=== PATIENT | male | born 1965 | race Caucasian/White ===

== ENCOUNTER 2022-04-14 17:26 | Emergency (ER) | payer OTHER, SELFPAY ==
[2022-04-14] VITALS (7 sets, daily range): BP systolic 124–143; BP diastolic 78–90; PULSE 63–79; RESP 16–18; TEMP 36.4; O2SAT 79–100; BMI 31.2
[2022-04-14 19:02] LABS: Hemoglobin* 14.9 gm/dL (13.5-17.5)
--- NOTE | 2022-04-14 19:12 | ED.GENADULT ---
HPI - General Adult General Chief complaint: Rib Pain <Trenton Claire MD - Last Filed: 04/14/22 20:25> Stated complaint: Short of breath, post surgery <Trenton Claire MD - Last Filed: 04/14/22 20:25> Time Seen by Provider: 04/14/22 18:06 <Trenton Claire MD - Last Filed: 04/14/22 20:25> History of Present Illness HPI narrative: 56-year-old man presenting to the emergency department accompanied by his son with concern of some left-sided chest pain. Little over week ago had a fusion of his left great toe for osteoarthritic related pain. 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 Notes a history of DVTs. No pulmonary emboli that he can recall. Been rather sedentary over the last week plus. Has not experienced shortness of breath. No fever. No cough. Three days ago than was seen for pain in his right forearm thought to be superficial thrombus. He had had an IV placed in the dorsum of that right hand surgery. Scans were done of right and left upper extremities he reports them to have indicated this superficial clot but nothing else. He has had to lay around with his left leg elevated. And then yesterday started to have pain in his left side chest area. Later conversation he feels like it is coming up the chest as well not just in the low left side where he is indicated. Does have some pleuritic nature. Was unable to lay on his left side due to pain. Works as a teacher. Later conversation reveals that he did donate his right kidney to his brother. <Trenton Claire MD - Last Filed: 04/14/22 20:25> Related Data Home medications: Home Medications Medication Instructions Recorded Confirmed aspirin 81 mg chewable tablet 81 mg PO DAILY 04/14/22 04/14/22 Previous Rx's Medication Instructions Recorded apixaban 5 mg (74 tabs) tablets in See Rx Instructions PO .COMPLEX 04/14/22 a dose pack (Eliquis DVT-PE Treat #74 ea 30D Start) <Trenton Claire MD - Last Filed: 04/14/22 20:25> Allergies/adverse reactions: Allergies Allergy/AdvReac Type Severity Reaction Status Date / Time No Known Drug Allergies Allergy Verified 04/14/22 17:39 <Trenton Claire MD - Last Filed: 04/14/22 20:25> Review of Systems Status of ROS: Reports: 10 or more systems reviewed and unremarkable except as noted in History and below <Trenton Claire MD - Last Filed: 04/14/22 20:25> Exam Narrative: Exam Narrative: Pleasantly talkative. Breathing easily. Talking fluidly. Skin is warm and dry. No evidence of trauma other than the IV placement and the dorsum of the right hand. On the dorsal distal right forearm is slight bruising and palpable cording consistent with superficial thrombus. Lungs are clear with equal expansion excursion with breath sounds throughout. There is no crepitus in the supraclavicular area. Palpation over the chest wall does not reveal clearly any reproducible tenderness. He does subjectively reports some tenderness in the left low anterior-lateral chest with deep inspiration. This also extends then to a little bit of the left upper abdomen. Cast in place on the left foot. No surrounding inflammatory changes are appreciated. No lower extremity edema appreciated otherwise. <Trenton Claire MD - Last Filed: 04/14/22 20:25> Const: Vital Signs, click to edit/add: Vital Signs - 24 hr 04/14/22 17:41 04/14/22 18:43 04/14/22 19:23 Temperature 97.5 F L Pulse Rate [Right Pulse Oximeter] 79 72 63 Respiratory Rate 18 16 Blood Pressure [Ri ght Upper Arm] 133/85 143/89 H Pulse Oximetry 79 L 98 99 Oxygen Delivery Me thod Room Air 04/14/22 19:40 Temperature Pulse Rate [Right Pulse Oximeter] 67 Respiratory Rate 16 Blood Pressure [Ri ght Upper Arm] 132/83 Pulse Oximetry 99 Oxygen Delivery Me thod <Trenton Claire MD - Last Filed: 04/14/22 20:25> Vital Signs, click to edit/add: Vital Signs - 24 hr 04/14/22 17:41 04/14/22 18:43 04/14/22 19:23 Temperature 97.5 F L Pulse Rate [Right Pulse Oximeter] 79 72 63 Respiratory Rate 18 16 Blood Pressure [Ri ght Upper Arm] 133/85 143/89 H Pulse Oximetry 79 L 98 99 Oxygen Delivery Me thod Room Air 04/14/22 19:40 Temperature Pulse Rate [Right Pulse Oximeter] 67 Respiratory Rate 16 Blood Pressure [Ri ght Upper Arm] 132/83 Pulse Oximetry 99 Oxygen Delivery Me thod <Marissa Bryant MD - Last Filed: 04/14/22 21:25> Documenting provider has reviewed patient's vital signs: yes <Trenton Claire MD - Last Filed: 04/14/22 20:25> Course Course Hospital Course: Received sign-out for this patient to follow-up on his CT scan. CT does show a subsegmental PE with a probable small area of pulmonary infarct. Discussed findings with the patient. Will go ahead start him on Eliquis. First dose given in the ER tonight since pharmacies are now closed. He will follow up with primary care provider next week. Note patient has no hypoxia, tachycardia or signs of right heart strain. <Trenton Claire MD - Last Filed: 04/14/22 20:25> Vital Signs Vital signs: Initial Vital Signs Temperature 97.5 F L 04/14/22 17:41 Temperature Source Temporal Artery Scan 04/14/22 17:41 Pulse Rate 79 04/14/22 17:41 Respiratory Rate 18 04/14/22 17:41 Blood Pressure 133/85 04/14/22 17:41 Blood Pressure Mean 101 04/14/22 17:41 Blood Pressure Position Sitting 04/14/22 17:41 Pulse Oximetry 79 L 04/14/22 17:41 Oxygen Delivery Method 04/14/22 17:41 Vital Signs Temperature 97.5 F L 04/14/22 17:41 Pulse Rate 79 04/14/22 17:41 Respiratory Rate 18 04/14/22 17:41 Blood Pressure 133/85 04/14/22 17:41 Pulse Oximetry 79 L 04/14/22 17:41 Oxygen Delivery Method 04/14/22 17:41 Temperature 97.5 F L 04/14/22 17:41 Pulse Rate 67 04/14/22 19:40 Respiratory Rate 16 04/14/22 19:40 Blood Pressure 132/83 04/14/22 19:40 Pulse Oximetry 99 04/14/22 19:40 Oxygen Delivery Method 04/14/22 17:41 <Trenton Claire MD - Last Filed: 04/14/22 20:25> Initial Vital Signs Temperature 97.5 F L 04/14/22 17:41 Temperature Source Temporal Artery Scan 04/14/22 17:41 Pulse Rate 79 04/14/22 17:41 Respiratory Rate 18 04/14/22 17:41 Blood Pressure 133/85 04/14/22 17:41 Blood Pressure Mean 101 04/14/22 17:41 Blood Pressure Position Sitting 04/14/22 17:41 Pulse Oximetry 79 L 04/14/22 17:41 Oxygen Delivery Method 04/14/22 17:41 Vital Signs Temperature 97.5 F L 04/14/22 17:41 Pulse Rate 79 04/14/22 17:41 Respiratory Rate 18 04/14/22 17:41 Blood Pressure 133/85 04/14/22 17:41 Pulse Oximetry 79 L 04/14/22 17:41 Oxygen Delivery Method 04/14/22 17:41 Temperature 97.5 F L 04/14/22 17:41 Pulse Rate 67 04/14/22 19:40 Respiratory Rate 16 04/14/22 19:40 Blood Pressure 132/83 04/14/22 19:40 Pulse Oximetry 99 04/14/22 19:40 Oxygen Delivery Method 04/14/22 17:41 <Marissa Bryant MD - Last Filed: 04/14/22 21:25> Medical Decision Making MDM Narrative Medical decision making narrative: Certainly could be just related to inactivity is having some discomfort although it is not really reproducible. With factor 5 a history I would anticipated doing a CT scan as I suspect that the D-dimer will be elevated due to recent superficial thrombus as well as surgery. However as he is absent 1 kidney perhaps it would be better to be more prudent and rely somewhat on testing. Will be drawing D-dimer as well as other labs needing to confirm renal function prior to CT scan if necessary. Indeed D-dimer is notably elevated. CRP though as well. GFR 59. CT scan chest PE protocol pending. Will also be receiving normal saline fluid bolus. <Trenton Claire MD - Last Filed: 04/14/22 20:25> Lab Data Lab results reviewed: Yes I reviewed the patient's lab results <Trenton Claire MD - Last Filed: 04/14/22 20:25> Labs: Lab Results 04/14/22 04/14/22 04/14/22 Range/Units 18:55 18:55 18:55 Hgb 14.9 (13.5-17.5) gm/dL D-Dimer Quant (PE/DVT) 1.68 H (0.00-0.50) ug/ml Sodium 136 (135-149) mmol/L Potassium 4.2 (3.6-5.1) mmol/L Chloride 102 (96-114) mmol/L Carbon Dioxide 25 (20-32) mmol/L BUN 16 (7-30) mg/dL Creatinine 1.4 (0.5-1.5) mg/dL Estimated Creat Clear 70.42 Estimated GFR 59 ml/min Glucose 91 (60-115) mg/dL Calcium 9.4 (8.4-10.6) mg/dL C-Reactive Protein 2.1 H (0.5-1.0) mg/dL Urine Color (Yellow) Urine Appearance (Clear) Urine pH (5.0-8.5) Ur Specific [place] (1.000-1.030) Urine Protein (Negative) Urine Glucose (UA) (Negative) Urine Ketones (Negative) Urine Blood (Negative) Urine Nitrite (Negative) Urine Bilirubin (Negative) Urine Urobilinogen (0.2-1.0) Ur Leukocyte Esterase (Negative) Urine RBC (0-2) Urine WBC (0-5) Ur Squamous Epith Cells (None-Few) Urine Bacteria (None) 04/14/22 Range/Units 19:35 Hgb (13.5-17.5) gm/dL D-Dimer Quant (PE/DVT) (0.00-0.50) ug/ml Sodium (135-149) mmol/L Potassium (3.6-5.1) mmol/L Chloride (96-114) mmol/L Carbon Dioxide (20-32) mmol/L BUN (7-30) mg/dL Creatinine (0.5-1.5) mg/dL Estimated Creat Clear Estimated GFR ml/min Glucose (60-115) mg/dL Calcium (8.4-10.6) mg/dL C-Reactive Protein (0.5-1.0) mg/dL Urine Color Yellow (Yellow) Urine Appearance Clear (Clear) Urine pH 5.5 (5.0-8.5) Ur Specific [place] >= 1.030 (1.000-1.030) Urine Protein Negative (Negative) Urine Glucose (UA) Negative (Negative) Urine Ketones Negative (Negative) Urine Blood Negative (Negative) Urine Nitrite Negative (Negative) Urine Bilirubin Negative (Negative) Urine Urobilinogen 0.2 (0.2-1.0) Ur Leukocyte Esterase Negative (Negative) Urine RBC 0-2 (0-2) Urine WBC 0-2 (0-5) Ur Squamous Epith Cells None (None-Few) Urine Bacteria None (None) <Trenton Claire MD - Last Filed: 04/14/22 20:25> Lab Results 04/14/22 04/14/22 04/14/22 Range/Units 18:55 18:55 18:55 Hgb 14.9 (13.5-17.5) gm/dL D-Dimer Quant (PE/DVT) 1.68 H (0.00-0.50) ug/ml Sodium 136 (135-149) mmol/L Potassium 4.2 (3.6-5.1) mmol/L Chloride 102 (96-114) mmol/L Carbon Dioxide 25 (20-32) mmol/L BUN 16 (7-30) mg/dL Creatinine 1.4 (0.5-1.5) mg/dL Estimated Creat Clear 70.42 Estimated GFR 59 ml/min Glucose 91 (60-115) mg/dL Calcium 9.4 (8.4-10.6) mg/dL C-Reactive Protein 2.1 H (0.5-1.0) mg/dL Urine Color (Yellow) Urine Appearance (Clear) Urine pH (5.0-8.5) Ur Specific [place] (1.000-1.030) Urine Protein (Negative) Urine Glucose (UA) (Negative) Urine Ketones (Negative) Urine Blood (Negative) Urine Nitrite (Negative) Urine Bilirubin (Negative) Urine Urobilinogen (0.2-1.0) Ur Leukocyte Esterase (Negative) Urine RBC (0-2) Urine WBC (0-5) Ur Squamous Epith Cells (None-Few) Urine Bacteria (None) 04/14/22 Range/Units 19:35 Hgb (13.5-17.5) gm/dL D-Dimer Quant (PE/DVT) (0.00-0.50) ug/ml Sodium (135-149) mmol/L Potassium (3.6-5.1) mmol/L Chloride (96-114) mmol/L Carbon Dioxide (20-32) mmol/L BUN (7-30) mg/dL Creatinine (0.5-1.5) mg/dL Estimated Creat Clear Estimated GFR ml/min Glucose (60-115) mg/dL Calcium (8.4-10.6) mg/dL C-Reactive Protein (0.5-1.0) mg/dL Urine Color Yellow (Yellow) Urine Appearance Clear (Clear) Urine pH 5.5 (5.0-8.5) Ur Specific [place] >= 1.030 (1.000-1.030) Urine Protein Negative (Negative) Urine Glucose (UA) Negative (Negative) Urine Ketones Negative (Negative) Urine Blood Negative (Negative) Urine Nitrite Negative (Negative) Urine Bilirubin Negative (Negative) Urine Urobilinogen 0.2 (0.2-1.0) Ur Leukocyte Esterase Negative (Negative) Urine RBC 0-2 (0-2) Urine WBC 0-2 (0-5) Ur Squamous Epith Cells None (None-Few) Urine Bacteria None (None) <Marissa Bryant MD - Last Filed: 04/14/22 21:25> Imaging Data CT scan - chest: Attestation: I have reviewed the pertinent imaging results. <Marissa Bryant MD - Last Filed: 04/14/22 21:25> Radiologist's impression: CT chest PE was acquired with 95 mL Isovue 370 IV contrast. Coronal and sagittal reformats were generated. COMPARISON: None. FINDINGS: Pulmonary arteries: The quality of enhancement of the pulmonary arteries is adequate. Filling defects in left lower lobe subsegmental branches (5/127) compatible with pulmonary emboli. No findings of pulmonary artery hypertension. Thyroid: Unremarkable. Thoracic lymph nodes: No enlarged supraclavicular, mediastinal, hilar, or axillary lymph nodes. Calcifications in the thorax are likely calcified lymph nodes, suggestive of prior granulomatous disease. Mediastinum and esophagus: Unremarkable. Heart and vasculature: Unremarkable. The RV/LV ratio was normal. Lungs: Geographic patchy ground-glass opacity in the left lower lobe. Calcified structure in the right middle lobe adjacent to the pericardium is likely a calcified granuloma or hamartoma. The lungs are otherwise clear. Pleura: Unremarkable. Chest wall: Unremarkable. Upper abdomen: No acute or significant findings. Cholecystectomy. Bones: Unremarkable for age. IMPRESSION: 1. Left lower lobe subsegmental branch pulmonary emboli, with patchy opacity in the left lower lobe, suggestive of pulmonary infarct. 2. No findings of right heart strain. <Marissa Bryant MD - Last Filed: 04/14/22 21:25> Discharge Plan Discharge Clinical Impression: Pulmonary embolism, Superficial venous thrombosis of right arm, Embolism, pulmonary with infarction <Trenton Claire MD - Last Filed: 04/14/22 20:25> Patient Disposition: Home, Self-Care <Trenton Claire MD - Last Filed: 04/14/22 20:25> Condition: Stable <Trenton Claire MD - Last Filed: 04/14/22 20:25> Instructions: Blood Thinners (ED) <Trenton Claire MD - Last Filed: 04/14/22 20:25> Additional Instructions: Hydrate. Start Eliquis as directed. Follow-up with your primary care provider for a recheck early next week. You will need to discuss with your primary care provider how long you will take Eliquis for. <Trenton Claire MD - Last Filed: 04/14/22 20:25> Prescriptions: New Eliquis DVT-PE Treat 30D Start 5 mg (74 tabs) tablets,dose pack See Rx Instructions .ROUTE .COMPLEX Qty: 74 0RF Rx Instructions: orally per package directions No Action aspirin 81 mg tablet,chewable 81 mg PO DAILY <Trenton Claire MD - Last Filed: 04/14/22 20:25> Follow Up/Referrals: Provider,Not a Local [Primary Care Provider] - <Trenton Claire MD - Last Filed: 04/14/22 20:25> Stand Alone Forms: MyHealth Info Instructions <Trenton Claire MD - Last Filed: 04/14/22 20:25>
[2022-04-14 19:15] LABS: Chloride* 102 mmol/L (96-114); Potassium* 4.2 mmol/L (3.6-5.1); Sodium* 136 mmol/L (135-149)
[2022-04-14 19:17] LABS: Creatinine* 1.4 mg/dL (0.5-1.5); Est. Creatinine Clearance* 70.42; Estimated Glomerular Filt Rate 59 ml/min
[2022-04-14 19:18] LABS: Blood Urea Nitrogen* 16 mg/dL (7-30); Calcium* 9.4 mg/dL (8.4-10.6); Carbon Dioxide* 25 mmol/L (20-32); D Dimer Quantitative* 1.68 ug/ml (0.00-0.50); Glucose* 91 mg/dL (60-115)
[2022-04-14 19:21] LABS: C Reactive Protein* 2.1 mg/dL (0.5-1.0)
[2022-04-14 19:44] LABS: Appearance Urine Clear (Clear); Bilirubin Urine Negative (Negative); Blood Urine Negative (Negative); Color Urine Yellow (Yellow); Glucose Urine Negative (Negative); Ketones Urine Negative (Negative); Leukocyte Esterase Urine Negative (Negative); Nitrite Urine Negative (Negative); Protein Urine Negative (Negative); Specific Gravity Urine >= 1.030 (1.000-1.030); Urobilinogen Urine 0.2 (0.2-1.0); pH Urine 5.5 (5.0-8.5)
[2022-04-14 19:52] LABS: RBC Urine 0-2 (0-2); WBC Urine 0-2 (0-5)
--- NOTE | 2022-04-14 19:55 | CRLHL7_ITS ---
For Patients: As a result of the Century Cures Act, medical imaging exams and procedure reports are released immediately into your electronic medical record. You may view this report before your referring provider. If you have questions, please contact your health care provider. INDICATION: Left-sided lower chest pain. History of factor 5. TECHNIQUE: CT chest PE was acquired with 95 mL Isovue 370 IV contrast. Coronal and sagittal reformats were generated. COMPARISON: None. FINDINGS: Pulmonary arteries: The quality of enhancement of the pulmonary arteries is adequate. Filling defects in left lower lobe subsegmental branches (5/127) compatible with pulmonary emboli. No findings of pulmonary artery hypertension. Thyroid: Unremarkable. Thoracic lymph nodes: No enlarged supraclavicular, mediastinal, hilar, or axillary lymph nodes. Calcifications in the thorax are likely calcified lymph nodes, suggestive of prior granulomatous disease. Mediastinum and esophagus: Unremarkable. Heart and vasculature: Unremarkable. The RV/LV ratio was normal. Lungs: Geographic patchy ground-glass opacity in the left lower lobe. Calcified structure in the right middle lobe adjacent to the pericardium is likely a calcified granuloma or hamartoma. The lungs are otherwise clear. Pleura: Unremarkable. Chest wall: Unremarkable. Upper abdomen: No acute or significant findings. Cholecystectomy. Bones: Unremarkable for age. IMPRESSION: 1. Left lower lobe subsegmental branch pulmonary emboli, with patchy opacity in the left lower lobe, suggestive of pulmonary infarct. 2. No findings of right heart strain. Findings were reported to Dr. Bryant on 04/14/2022 at 8:37 p.m. Please note that all CT scans at this facility use dose modulation, iterative reconstruction, and/or weight-based dosing when appropriate to reduce radiation dose to as low as reasonably achievable. Dictated by Anton Turner MD @ 04/14/2022 8:38:30 PM (Electronically Signed)
[2022-04-14] MEDS: 0.9 % SODIUM CHLORIDE 1000 ml 1,000 ML IV (20:20)
[2022-04-14] MEDS: APIXABAN 5 MG TABLET 10 MG PO (21:26)
--- NOTE | 2022-04-15 09:21 | ED.NURSE ---
aidan had called and [facility] ordered 10 mg bid for 7 days then 5 mg bid after that. dispense 60 of 5 mg and 14 of 10 mg. [facility] will substitute 2,5 mg tablets for the 10as they have no 10 mg.
== END 2022-04-14 21:34 | disposition home or self-care (01) ==
PROVIDERS: Family Medicine; Emergency Provider Family Medicine
DX: I26.99 Other pulmonary embolism without acute cor pulmonale (principal); I82.611 Acute embolism and thrombosis of superficial veins of right upper extremity
CPT/HCPCS: 36415; 71260; 80048; 81001; 85018; 85379; 86140; 96360; 99284; 99285; A9270; J7030; Q9967

== ENCOUNTER 2022-04-15 13:06 | Emergency (ER) | payer OTHER, SELFPAY ==
[2022-04-15] VITALS (11 sets, daily range): BP systolic 122–141; BP diastolic 76–85; PULSE 65–79; RESP 20; TEMP 36.4; O2SAT 94–97; BMI 31.2
--- NOTE | 2022-04-15 14:09 | ED.CHESTPAIN ---
HPI - Chest Pain General Chief Complaint: Chest Pain Stated Complaint: Chest pain, Trouble breathing Time Seen by Provider: 04/15/22 13:43 History of Present Illness HPI narrative: This 56-year-old male comes in reporting left-sided chest pain. He was seen yesterday here and diagnosed with a pulmonary embolism. He does have a history of prior DVT and was not on any anticoagulants. He did have a surgery to his foot and now has developed deep venous thrombosis with small subsegmental pulmonary embolism in the left lower lung with some evidence infarct. The patient had a CT scan with IV contrast yesterday to identify this. 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 He states that he feels some shortness of breath with any kind of exertion. At the time of my initial visit with him his oximetry and vital signs were normal at rest. His oximetry was 95-96% and heart rate around 65. He was prescribed Eliquis. He took a tablet last night and again this morning. He does not report any nausea, vomiting, lightheadedness, or diaphoresis. He does not have any fever or symptoms of respiratory infection. Related Data Home Medications Medication Instructions Recorded Confirmed aspirin 81 mg chewable tablet 81 mg PO DAILY 04/14/22 04/14/22 Previous Rx's Medication Instructions Recorded apixaban 5 mg (74 tabs) tablets in See Rx Instructions PO .COMPLEX 04/14/22 a dose pack (Eliquis DVT-PE Treat #74 ea 30D Start) hydrocodone 5 mg-acetaminophen 325 1 tab PO Q4-6H PRN pain #30 tabs 04/15/22 mg tablet Allergies Allergy/AdvReac Type Severity Reaction Status Date / Time No Known Drug Allergies Allergy Verified 04/14/22 17:39 Review of Systems Status of ROS Reports: 10 or more systems reviewed and unremarkable except as noted in History and below Narrative Constitutional: No fevers, no weight gain or loss. Eyes: No discharge. No vision changes. HENT: No congestion, no sore throat, no ear pain. Cardiovascular: No palpitations. Left chest pain. Respiratory: No wheezes, no cough. Shortness of breath as described above. Gastrointestinal: No abdominal pain, no vomiting, no diarrhea. Genitourinary: No dysuria, no hematuria. Musculoskeletal: Normal range of motion. Skin: No rashes, no pruritis. Neurological: No dizziness, weakness, sensory change, speech change. Endo/Heme/Allergies: No bruising or bleeding. No polydipsia. Pysch: no suicidality, no anxiety, no insomnia. All other systems reviewed and are negative. [facility] Social History Smoking Status: Never smoker Do you use any of these nicotine containing products: None How often do you have a drink containing alcohol: 2-3 times a week How many standard drinks containing alcohol do you have on a typical day: 3 or 4 AUDIT-C Alcohol total score: 4 Non-prescribed substance use: denies use Exam Narrative Exam Narrative: Constitutional: Well-developed, well-nourished, no acute distress. HEENT: Normocephalic, atraumatic. Neck: Normal range of motion. Nontender. Supple. Heart: Regular. No murmurs. Normal rate. Intact distal pulses. Lungs: Clear to auscultation. No chest discomfort. No wheezes, rhonchi, or rales. Abdomen: Normal bowel sounds. Nontender. No rebound tenderness. Genitalia: Deferred. Back: No midline tenderness. Normal range of motion. Extremities: Normal range of motion. His left foot is in a cast from a recent orthopedic surgery. Skin: Intact. No rash. Warm. No erythema or pallor. Neurologic: No altered sensation. No weakness. Alert and oriented. Psychiatric: No suicidality. No anxiety or depression. No insomnia. Nursing notes and vitals signs are reviewed. Const Vital Signs, click to edit/add: Vital Signs - 24 hr 04/15/22 13:15 04/15/22 13:32 04/15/22 13:45 Temperature 97.5 F L Pulse Rate 76 71 Pulse Rate [Pulse Oximeter] 79 Respiratory Rate 20 Blood Pressure Blood Pressure [Left Upper Arm] 141/85 H Pulse Oximetry 95 95 95 Oxygen Delivery Method Room Air 04/15/22 14:00 04/15/22 14:02 04/15/22 14:15 Temperature Pulse Rate 71 70 67 Pulse Rate [Pulse Oximeter] Respiratory Rate Blood Pressure 123/76 Blood Pressure [Left Upper Arm] Pulse Oximetry 95 95 95 Oxygen Delivery Method 04/15/22 14:30 04/15/22 14:32 04/15/22 14:45 Temperature Pulse Rate 70 70 69 Pulse Rate [Pulse Oximeter] Respiratory Rate Blood Pressure 122/80 Blood Pressure [Left Upper Arm] Pulse Oximetry 96 96 94 Oxygen Delivery Method Course Vital Signs Vital signs: Initial Vital Signs Temperature 97.5 F L 04/15/22 13:15 Temperature Source Temporal Artery Scan 04/15/22 13:15 Pulse Rate 79 04/15/22 13:15 Respiratory Rate 20 04/15/22 13:15 Blood Pressure 141/85 H 04/15/22 13:15 Blood Pressure Mean 103 04/15/22 13:15 Blood Pressure Position Semi-Fowlers 04/15/22 13:15 Pulse Oximetry 95 04/15/22 13:15 Oxygen Delivery Method 04/15/22 13:15 Vital Signs Temperature 97.5 F L 04/15/22 13:15 Pulse Rate 79 04/15/22 13:15 Respiratory Rate 20 04/15/22 13:15 Blood Pressure 141/85 H 04/15/22 13:15 Pulse Oximetry 95 04/15/22 13:15 Oxygen Delivery Method 04/15/22 13:15 Temperature 97.5 F L 04/15/22 13:15 Pulse Rate 69 04/15/22 14:45 Respiratory Rate 20 04/15/22 13:15 Blood Pressure 122/80 04/15/22 14:32 Pulse Oximetry 94 04/15/22 14:45 Oxygen Delivery Method 04/15/22 13:15 MDM - Chest Pain MDM Narrative Medical decision making narrative: This patient comes in reporting left-sided chest discomfort as described above. He was diagnosed with pulmonary embolism yesterday. He had a recent surgery to his left foot and does have a hypercoagulable condition with Leiden factor 5 mutation. He is currently taking Eliquis and arrives with normal vital signs. He states that he feels short of breath when getting up to ambulate but at rest he feels okay. He had difficulty finding a position to sleep comfortably in last night. Today his EKG and lab results returned with reassuring findings. His troponin is 0. His vital signs are all in normal range. His hemoglobin is normal also. He is having pleuritic pain related to his pulmonary embolism. There is no sign of heart strain or worsening condition on CT imaging and current vital signs. He has just 1 kidney as he donated the other 1 to a family member who was in renal failure. I did not repeat CT imaging based on the reassurance of lab results and vital signs. Additionally he is adequately treated on Eliquis. He is okay to return home. He received a prescription for [place] to help with pain as needed. Lab Data Labs: Lab Results 04/15/22 04/15/22 04/15/22 Range/Units 14:06 14:21 14:21 WBC 7.99 (4.50-11.00) K/uL RBC 4.24 L (4.30-5.90) m/uL Hgb 13.6 (13.5-17.5) gm/dL Hct 38.0 (37.0-53.0) % MCV 90 (80-100) fL MCH 32 (26-34) pg MCHC 36 (32-36) gm/dL RDW Coeff of Paul 11.6 (11.5-15.5) % Plt Count 175 (140-440) K/uL Neut % (Auto) 76.6 H (42.0-72.0) % Lymph % (Auto) 11.3 L (20-44) % Hickman % (Auto) 11.4 H (0.0-11.0) % Eos % (Auto) 0.3 (0.0-7.0) % Baso % (Auto) 0.3 (0.0-3.0) % Neut # (Auto) 6.10 (1.7-7.0) K/uL Lymph # (Auto) 0.90 (0.90-2.90) K/uL Hickman # (Auto) 0.90 (0.00-0.90) K/UL Eos # (Auto) 0.02 (0.00-0.50) K/uL Baso # (Auto) 0.02 (0.00-0.30) K/uL INR 1.59 H (0.91-1.10) Sodium (135-149) mmol/L Potassium (3.6-5.1) mmol/L Chloride (96-114) mmol/L Carbon Dioxide (20-32) mmol/L BUN (7-30) mg/dL Creatinine (0.5-1.5) mg/dL Estimated Creat Clear Estimated GFR ml/min Glucose (60-115) mg/dL Calcium (8.4-10.6) mg/dL POC Troponin I 0.00 L (0.01-0.04) ng/ml 04/15/22 Range/Units 14:21 WBC (4.50-11.00) K/uL RBC (4.30-5.90) m/uL Hgb (13.5-17.5) gm/dL Hct (37.0-53.0) % MCV (80-100) fL MCH (26-34) pg MCHC (32-36) gm/dL RDW Coeff of Paul (11.5-15.5) % Plt Count (140-440) K/uL Neut % (Auto) (42.0-72.0) % Lymph % (Auto) (20-44) % Hickman % (Auto) (0.0-11.0) % Eos % (Auto) (0.0-7.0) % Baso % (Auto) (0.0-3.0) % Neut # (Auto) (1.7-7.0) K/uL Lymph # (Auto) (0.90-2.90) K/uL Hickman # (Auto) (0.00-0.90) K/UL Eos # (Auto) (0.00-0.50) K/uL Baso # (Auto) (0.00-0.30) K/uL INR (0.91-1.10) Sodium 134 L (135-149) mmol/L Potassium 3.7 (3.6-5.1) mmol/L Chloride 103 (96-114) mmol/L Carbon Dioxide 20 (20-32) mmol/L BUN 16 (7-30) mg/dL Creatinine 1.2 (0.5-1.5) mg/dL Estimated Creat Clear 82.15 Estimated GFR 71 ml/min Glucose 118 H (60-115) mg/dL Calcium 9.1 (8.4-10.6) mg/dL POC Troponin I (0.01-0.04) ng/ml ECG Data Attestation: I personally reviewed and interpreted this ECG as follows: Interpretation: Normal sinus rhythm. Rate is 80 beats per minute. There are no ST or T-wave abnormalities. Discharge Plan Discharge Clinical Impression: Pulmonary embolism, Chest pain Patient Disposition: Home w/ Parent or Adult Condition: Unchanged Additional Instructions: Take medication as prescribed. Follow up with MD or return if worsening symptoms occur. Prescriptions: New hydrocodone-acetaminophen 5-325 mg tablet 1 tab PO Q4-6H PRN (Reason: pain) Qty: 30 0RF No Action aspirin 81 mg tablet,chewable 81 mg PO DAILY Eliquis DVT-PE Treat 30D Start 5 mg (74 tabs) tablets,dose pack See Rx Instructions .ROUTE .COMPLEX Qty: 74 0RF Rx Instructions: orally per package directions Follow Up/Referrals: Provider,Not a Local [Primary Care Provider] - Stand Alone Forms: Recorded Future Info Instructions
[2022-04-15 14:33] LABS: Basophils Absolute Auto 0.02 K/uL (0.00-0.30); Basophils Percent Auto 0.3 % (0.0-3.0); Eosinophils Absolute Auto 0.02 K/uL (0.00-0.50); Eosinophils Percent Auto 0.3 % (0.0-7.0); Hemoglobin* 13.6 gm/dL (13.5-17.5); Immature Granulocytes Abs Auto 0.01 K/uL (0.00-0.30); Immature Granulocytes Pct Auto 0.1 %; Lymphocytes Percent Auto 11.3 % (20-44); Mean Corpuscular HGB Conc 36 gm/dL (32-36); Mean Corpuscular Hemoglobin 32 pg (26-34); Mean Corpuscular Volume 90 fL (80-100); Monocytes Percent Auto 11.4 % (0.0-11.0); Neutrophils Percent Auto 76.6 % (42.0-72.0); Platelet Count* 175 K/uL (140-440); RDW Coefficient of Variation % 11.6 % (11.5-15.5); Red Blood Count 4.24 m/uL (4.30-5.90); White Blood Count* 7.99 K/uL (4.50-11.00)
[2022-04-15 14:35] LABS: Slide Review Reflex No
[2022-04-15 14:47] LABS: Chloride* 103 mmol/L (96-114); Potassium* 3.7 mmol/L (3.6-5.1); Sodium* 134 mmol/L (135-149)
[2022-04-15 14:50] LABS: Blood Urea Nitrogen* 16 mg/dL (7-30); Calcium* 9.1 mg/dL (8.4-10.6); Carbon Dioxide* 20 mmol/L (20-32); Creatinine* 1.2 mg/dL (0.5-1.5); Est. Creatinine Clearance* 82.15; Estimated Glomerular Filt Rate 71 ml/min; Glucose* 118 mg/dL (60-115)
[2022-04-15 14:59] LABS: INR 1.59 (0.91-1.10); Prothrombin Time 19.9 Seconds
== END 2022-04-15 15:17 | disposition home or self-care (01) ==
PROVIDERS: Emergency Provider Emergency Medicine Emergency Medical Services
DX: I26.99 Other pulmonary embolism without acute cor pulmonale (principal)
CPT/HCPCS: 36415; 80048; 84484; 85025; 85610; 93005; 94761; 99285